=== PATIENT | female | born 1975 | race Caucasian/White ===

== ENCOUNTER 2018-07-25 10:46 | Outpatient (CLI) | payer OTHER ==
--- NOTE | 2018-07-25 11:08 | RAD ---
LEFT ANKLE 3 VIEWS: HISTORY: A 43-year-old female with a history of pain. FINDINGS: Degenerative changes left ankle joint. Calcaneal, plantar, and Achilles enthesophytes. No fracture or dislocation. IMPRESSION: Degenerative changes without fracture or dislocation. POS: [facility]JI
== END 2018-07-25 10:47 | disposition home or self-care (01) ==
LOC: RAD-FRANK 10:46
PROVIDERS: ATTEND Nurse Practitioner Family
DX: M25.572 Pain in left ankle and joints of left foot (principal); M19.072 Primary osteoarthritis, left ankle and foot

== ENCOUNTER 2019-05-19 15:27 | Outpatient (CLI) | payer OTHER ==
--- NOTE | 2019-06-09 11:27 | MMO ---
Bilateral MAMMO Bilat Screen [facility]. CLINICAL HISTORY: Patient is 44 years old and is seen for screening. The patient has no family history of breast cancer. The patient has no personal history of cancer. VIEWS: The views performed were: bilateral craniocaudal; bilateral craniocaudal with tomosynthesis; bilateral mediolateral oblique; and bilateral mediolateral oblique with tomosynthesis. FILMS COMPARED: The present examination has been compared to a prior imaging study performed at [facility] on 09/09/2015. This study has been interpreted with the assistance of computer-aided detection. MAMMOGRAM FINDINGS: There are scattered fibroglandular densities. Benign calcifications are noted bilaterally. There are no suspicious masses, suspicious calcifications, or new areas of architectural distortion. IMPRESSION: THERE IS NO MAMMOGRAPHIC EVIDENCE OF MALIGNANCY. A ROUTINE FOLLOW-UP MAMMOGRAM IN 1 YEAR IS RECOMMENDED. THE RESULTS OF THIS EXAM WERE SENT TO THE PATIENT. ACR BI-RADS Category 2 - Benign finding MAMMOGRAPHY NOTE: 1. A negative mammogram report should not delay a biopsy if a dominant of clinically suspicious mass is present. 2. Approximately 10% to 15% of breast cancers are not detected by mammography. 3. Adenosis and dense breasts may obscure an underlying neoplasm. Reported by: GAETANO CARO MD Electonically Signed: [id number]
== END 2019-05-19 15:28 | disposition home or self-care (01) ==
LOC: BICMAMMO 15:27
PROVIDERS: ATTEND Nurse Practitioner Family
DX: Z12.31 Encounter for screening mammogram for malignant neoplasm of breast (principal)
CPT/HCPCS: 77063; 77067

== ENCOUNTER 2020-04-22 11:54 | Emergency (ER) | payer OTHER, SELFPAY ==
[2020-04-22] MEDS ORDERED: Morphine 4 MG/ML VIAL ONE (12:25)
[2020-04-22] MEDS ORDERED: Ondansetron PF 4 MG/2 ML Vial ONE (12:25)
[2020-04-22 12:39] LABS: #Basophils 0.1 thou/uL (0.0-0.2); #Eosinphils 0.1 thou/uL (0.0-0.7); #Lymphocytes 2.1 thou/uL (1.20-3.40); #Monocytes 0.9 thou/uL (0.11-0.59); #Neutrophils 9.6 thou/uL (1.40-6.50); %Basophils 0.6 % (0.0-1.0); %Eosinophils 0.4 % (0.0-10.0); %Lymphocytes 16.5 % (21.0-51.0); %Monocytes 6.7 % (0.0-10.0); %Neutrophils 75.8 % (42.0-75.0); Hemoglobin 13.8 g/dL (12.0-16.0); Mean Corpuscular HGB CONC 32.6 g/dL (32.0-36.0); Mean Corpuscular Hemoglobin 28.7 pg (27.0-31.0); Mean Corpuscular Volume 88.1 fL (78.0-98.0); Platelet Count 373 thou/uL (130-400); RBC Distribution Width 12.5 % (11.5-14.5); Red Blood Cell (RBC) Count 4.82 mill/uL (4.20-5.40); White Blood Cell (WBC) Count 12.7 thou/uL (4.8-10.8)
--- NOTE | 2020-04-22 12:56 | CT ---
CT Abdomen Pelvis W Con HISTORY: Abdominal pain COMPARISON: 02/24/2017 FINDINGS: The lung bases are unremarkable. The tiny calcified granulomas in the liver. The spleen, pancreas, ad renal glands and kidneys are normal. No calcified gallstones are seen. No free air, free fluid or lymphadenopathy is noted in the abdomen or pelvis. The small bowel loops are not abnormally dilated. A normal-appearing appendix is present. The patient is post hysterectomy. There is a 5 cm septated cystic mass in the left adnexa. There are degenerative changes in the spine. The aorta is of normal caliber. IMPRESSION: 1. No evidence of acute process 2. A 5 cm cystic left adnexal mass, likely ovarian. This would be better characterized with a pelvic ultrasound.
[2020-04-22 13:01] LABS: ALT (SGPT) 9 U/L (8-55); AST (SGOT) 12 U/L (5-34); Alkaline Phosphatase 70 U/L (40-110); Anion Gap 14 mmol/L (10-20); BUN (Urea Nitrogen) 8 mg/dL (7.0-18.7); Bilirubin, Total 0.4 mg/dL (0.2-1.2); Calc. Creatinine Clearance 0 mL/min (70-130); Calcium 8.9 mg/dL (7.8-10.44); Carbon Dioxide 22 mmol/L (22-29); Chloride 106 mmol/L (98-107); Estimated GFR-MDRD 83; Globulin 3.2 g/dL (2.4-3.5); Glucose 94 mg/dL (70-105); Potassium 3.7 mmol/L (3.5-5.1); Protein, Total 7.2 g/dL (6.0-8.3); Sodium 138 mmol/L (136-145)
[2020-04-22 14:32] LABS: Bilirubin Negative (Negative); Blood, Urine Negative (Negative); Clarity Clear (Clear); Glucose, Urine (Dipstick) Normal (Negative); Ketone, Urine Negative (Negative); Leukocyte Negative Leu/uL (Negative); Nitrite Negative (Negative); Protein, Urine (Dipstick) Negative (Neg-Trace); Specific Gravity, Urine 1.018 (1.002-1.036); Urobilinogen Normal mg/dL (Less than 2)
--- NOTE | 2020-04-22 15:00 | ULT ---
EXAM: Pelvic ultrasound HISTORY: Pelvic pain COMPARISON: None TECHNIQUE: Multiple grayscale and color Doppler images were obtained in a transabdominal pelvic ultra sound. Spectral analysis of the Doppler waveforms of the ovaries were performed. FINDINGS: The patient is status post removal of the uterus and right ovary. No free fluid is seen in the pelvis . LEFT OVARY: Normal flow without focal mass. There is a septated cystic lesion in the left ovary measu ring 4.6 cm in greatest dimension. IMPRESSION: Left ovarian septated cystic lesion may represent a cyst or cystic neoplasm.
== END 2020-04-22 15:52 | disposition home or self-care (01) ==
LOC: ERS 11:54
DX: N83.202 Unspecified ovarian cyst, left side (principal); I10 Essential (primary) hypertension; G43.909 Migraine, unspecified, not intractable, without status migrainosus; Z79.899 Other long term (current) drug therapy
CPT/HCPCS: 36415; 74177; 76856; 80053; 81003; 83605; 85025; 87040; 93005; 93976; 94760; 96361; 96374; 96375; J2270; J2405

== ENCOUNTER 2020-06-03 15:20 | Outpatient (CLI) | payer OTHER ==
--- NOTE | 2020-06-03 16:01 | RAD ---
Exam: Right elbow 4 views: HISTORY: Pain, possible injury COMPARISON: None FINDINGS: No evidence for elbow joint effusion. No evidence for fracture, dislocation, or other significant acute osseous abnormality. IMPRESSION: No significant acute process.
== END 2020-06-03 15:21 | disposition home or self-care (01) ==
LOC: BICRAD 15:20
PROVIDERS: ATTEND Nurse Practitioner Family
DX: M25.521 Pain in right elbow (principal)

== ENCOUNTER 2020-08-15 12:09 | Outpatient (CLI) | payer OTHER ==
--- NOTE | 2020-08-15 15:21 | MRI ---
EXAM: MRI Upper Ext Jt Rt WO Con DATE: 08/15/2020 12:45 PM INDICATION: Right elbow lateral epicondylitis COMPARISON: Right elbow radiograph dated June 03, 2020 FINDING: Multiplanar multisequence MR images were obtained of the right elbow without IV contrast. There is a moderate to severe lateral epicondylitis. The ulnar collateral ligament, lateral collatera l ligament, lateral ulnar collateral ligament and common flexor origin are normal appearing. The triceps insertion is normal-appearing. The biceps and brachialis insertions are normal appearing. The visualized ulnar nerve is normal-appearing. Bone marrow signal intensity appears within normal limits. IMPRESSION:Moderate to severe lateral epicondylitis
== END 2020-08-15 12:10 | disposition home or self-care (01) ==
LOC: BICMRI 12:09
PROVIDERS: ATTEND Orthopaedic Surgery
DX: M77.11 Lateral epicondylitis, right elbow (principal)

== ENCOUNTER 2020-12-27 08:46 | Outpatient (CLI) | payer OTHER | END 2020-12-27 08:47 | disposition home or self-care (01) | LOC: BICULT 08:46 | PROVIDERS: ATTEND Nurse Practitioner Family | DX: N83.202 Unspecified ovarian cyst, left side (principal); K80.20 Calculus of gallbladder without cholecystitis without obstruction | CPT/HCPCS: 76856; 93975; 93976 ==

== ENCOUNTER 2021-05-15 11:22 | Outpatient (CLI) | payer OTHER ==
[2021-05-15 12:35] LABS: #Basophils 0.1 10x3/uL (0.0-0.2); #Eosinphils 0.1 10x3/uL (0.0-0.5); #Monocytes 0.8 10x3/uL (0.0-1.1); #Neutrophils 7.4 10x3/uL (1.5-8.4); %Basophils 0.6 % (0.0-2.0); %Eosinophils 0.6 % (0.0-6.0); %Lymphocytes 18.7 % (18.0-47.0); %Monocytes 7.6 % (0.0-10.0); Hemoglobin 13.9 g/dL (12.0-15.5); Mean Corpuscular HGB CONC 32.2 g/dL (32.0-36.0); Mean Corpuscular Hemoglobin 28.5 pg (27.0-33.0); Mean Corpuscular Volume 88.7 fl (81.6-98.3); Mean Platelet Volume 10.5 fl (7.4-10.4); Platelet Count 329 10x3/uL (150-450); RBC Distribution Width 12.3 % (11.5-14.5); Red Blood Cell (RBC) Count 4.87 10x6/uL (3.90-5.03); White Blood Cell (WBC) Count 10.3 10x3/uL (3.5-10.5)
[2021-05-15 23:44] LABS: SARS-CoV-2 PCR by NAA Not Detected (NotDetected)
== END 2021-05-15 11:23 | disposition home or self-care (01) ==
LOC: LABBT 11:22
PROVIDERS: ATTEND Orthopaedic Surgery
DX: Z01.812 Encounter for preprocedural laboratory examination (principal); Z20.822 Contact with and (suspected) exposure to COVID-19
CPT/HCPCS: 85025; U0003; U0005

== ENCOUNTER 2021-05-18 05:50 | Day surgery (SDC) | payer OTHER ==
[2021-05-17 13:23] VITALS: BMI 38.0
[2021-05-18] MEDS ORDERED: ceFAZolin 2 GM/DEX 5% 100 ML BAG ONE (06:36)
[2021-05-18] MEDS ORDERED: Bupivacaine PF 0.5% 30 ML VIAL ONE (06:43)
[2021-05-18] MEDS ORDERED: EPINEPHrine 1 MG/ML AMP ONE (06:43)
[2021-05-18] MEDS ORDERED: Fentanyl 100 MCG/2 ML VIAL ONE ×2 (06:59→07:48)
[2021-05-18] MEDS ORDERED: Midazolam HCl 2 mg/2 ml Vial ONE (06:59)
[2021-05-18] MEDS ORDERED: Ondansetron PF 4 MG/2 ML Vial ONE (07:19)
[2021-05-18] MEDS ORDERED: PROPOFOL 200 MG/20 ML VIAL ONE (07:19)
[2021-05-18] MEDS ORDERED: Dexamethasone 20 MG/5 ML VIAL ONE (07:19)
[2021-05-18] MEDS ORDERED: Lidocaine 1% PF 5 ML VIAL ONE (07:19)
[2021-05-18] MEDS ORDERED: Bupivacaine HCl 0.5%/Epinephrine 1:200,000/PF 30 ml Vial ONE (07:30)
[2021-05-18] MEDS ORDERED: Famotidine/PF 20 mg/2ml Vial ONE (07:46)
== END 2021-05-18 11:26 | disposition home or self-care (01) ==
LOC: SDC 05:50
PROVIDERS: ATTEND Orthopaedic Surgery
PROC: 0LN30ZZ Release Right Upper Arm Tendon, Open Approach (ICD-10-PCS; principal; 2021-05-18)
PROC: 0PBF0ZZ Excision of Right Humeral Shaft, Open Approach (ICD-10-PCS; principal; 2021-05-18)
PROC: 3E0T3BZ Introduction of Anesthetic Agent into Peripheral Nerves and Plexi, Percutaneous Approach (ICD-10-PCS; principal; 2021-05-18)
PROC: 01N40ZZ Release Ulnar Nerve, Open Approach (ICD-10-PCS; principal; 2021-05-18)
DX: G56.21 Lesion of ulnar nerve, right upper limb (principal); M77.11 Lateral epicondylitis, right elbow; M77.01 Medial epicondylitis, right elbow; M25.721 Osteophyte, right elbow; I10 Essential (primary) hypertension; Z79.899 Other long term (current) drug therapy
CPT/HCPCS: 85025; J0171; J1100; J2250; J2405; J2704; J3010; S0020; S0028; U0003; U0005

== ENCOUNTER 2021-12-19 16:09 | Outpatient (CLI) | payer OTHER | END 2021-12-19 16:10 | disposition home or self-care (01) | LOC: RAD-FRANK 16:09 | PROVIDERS: ATTEND Nurse Practitioner Family | DX: M54.2 Cervicalgia (principal); M47.812 Spondylosis without myelopathy or radiculopathy, cervical region | CPT/HCPCS: 72040 ==

== ENCOUNTER 2022-04-04 08:06 | Outpatient (CLI) | payer OTHER | END 2022-04-04 08:07 | disposition home or self-care (01) | LOC: RAD-FRANK 08:06 | PROVIDERS: ATTEND Nurse Practitioner Family | DX: M79.605 Pain in left leg (principal) ==

== ENCOUNTER 2023-06-12 12:36 | Outpatient (CLI) | payer OTHER | END 2023-06-12 12:37 | disposition home or self-care (01) | LOC: ULT 12:36 | PROVIDERS: ATTEND Internal Medicine Gastroenterology | DX: K59.09 Other constipation (principal); K21.9 Gastro-esophageal reflux disease without esophagitis; R10.11 Right upper quadrant pain; K80.20 Calculus of gallbladder without cholecystitis without obstruction | CPT/HCPCS: 76705 ==

== ENCOUNTER 2023-07-05 15:52 | Outpatient (CLI) | payer OTHER ==
[2023-07-05 17:36] LABS: ALT (SGPT) 12 U/L (8-55); AST (SGOT) 13 U/L (5-34); Albumin 3.9 g/dL (3.5-5.0); Alkaline Phosphatase 70 U/L (40-110); Anion Gap 15 mmol/L (10-20); BUN (Urea Nitrogen) 7 mg/dL (7.0-18.7); Bilirubin, Direct 0.1 mg/dL (0.1-0.3); Bilirubin, Total 0.2 mg/dL (0.2-1.2); Calc. Creatinine Clearance 0 mL/min (70-130); Calcium 9.2 mg/dL (7.8-10.44); Carbon Dioxide 24 mmol/L (22-29); Chloride 105 mmol/L (98-107); Estimated GFR 93; Globulin 2.7 g/dL (2.4-3.5); Glucose 91 mg/dL (70-105); Potassium 3.7 mmol/L (3.5-5.1); Protein, Total 6.6 g/dL (6.0-8.3); Sodium 140 mmol/L (136-145)
[2023-07-05 17:41] LABS: #Basophils 0.1 10x3/uL (0.0-0.2); #Eosinphils 0.1 10x3/uL (0.0-0.5); #Monocytes 0.9 10x3/uL (0.0-1.1); #Neutrophils 7.9 10x3/uL (1.5-8.4); %Basophils 0.5 % (0.0-2.0); %Eosinophils 0.5 % (0.0-6.0); %Lymphocytes 18.3 % (18.0-47.0); %Monocytes 7.8 % (0.0-10.0); %Neutrophils 72.4 % (40.0-75.0); Hematocrit 40.8 % (34.9-44.5); Hemoglobin 13.5 g/dL (12.0-15.5); Mean Corpuscular HGB CONC 33.1 g/dL (32.0-36.0); Mean Corpuscular Hemoglobin 29.9 pg (27.0-33.0); Mean Corpuscular Volume 90.5 fl (81.6-98.3); Mean Platelet Volume 10.1 fl (7.4-10.4); Platelet Count 373 10x3/uL (150-450); RBC Distribution Width 13.1 % (11.5-14.5); Red Blood Cell (RBC) Count 4.51 10x6/uL (3.90-5.03)
== END 2023-07-05 15:53 | disposition home or self-care (01) ==
LOC: LABBT 15:52
PROVIDERS: ATTEND Surgery
DX: Z01.812 Encounter for preprocedural laboratory examination (principal); K80.20 Calculus of gallbladder without cholecystitis without obstruction
CPT/HCPCS: 80053; 80076; 85025; 93005; 93010

== ENCOUNTER 2023-12-11 19:20 | Emergency (ER) | payer OTHER ==
[2023-12-11 19:55] LABS: #Basophils 0.08 10x3/uL (0.0-0.2); %Basophils 0.7 % (0.0-1.0); %Eosinophils 0.8 % (0.0-10.0); %Lymphocytes 21.6 % (21.0-51.0); %Monocytes 6.5 % (0.0-10.0); %Neutrophils 69.6 % (42.0-75.0); Hematocrit 42.7 % (36.0-47.0); Hemoglobin 13.9 g/dL (12.0-16.0); Mean Corpuscular HGB CONC 32.6 g/dL (32.0-36.0); Mean Corpuscular Hemoglobin 29.3 pg (27.0-31.0); Mean Corpuscular Volume 89.9 fL (78.0-98.0); Mean Platelet Volume 9.4 fL (7.4-10.4); Platelet Count 427 10x3/uL (130-400); RBC Distribution Width 13.8 % (11.5-14.5); Red Blood Cell (RBC) Count 4.75 mill/uL (4.20-5.40)
[2023-12-11 20:17] LABS: ALT (SGPT) 16 U/L (8-55); AST (SGOT) 16 U/L (5-34); Albumin 3.8 g/dL (3.5-5.0); Alkaline Phosphatase 106 U/L (40-110); Anion Gap 16 mmol/L (10-20); BUN (Urea Nitrogen) 13 mg/dL (7.0-18.7); Bilirubin, Total 0.4 mg/dL (0.2-1.2); Calc. Creatinine Clearance 0 mL/min (70-130); Calcium 9.9 mg/dL (7.8-10.44); Carbon Dioxide 24 mmol/L (22-29); Chloride 99 mmol/L (98-107); Estimated GFR 60; Glucose 97 mg/dL (70-105); Potassium 3.9 mmol/L (3.5-5.1); Protein, Total 7.8 g/dL (6.0-8.3); Sodium 135 mmol/L (136-145)
[2023-12-11 20:26] LABS: Troponin I Less than 0.010 ng/mL (< 0.028)
[2023-12-11 20:40] LABS: Free T4 (Free Thyroxine) 1.31 ng/dL (0.70-1.48); Thyroid Stimulating Hormone 0.2719 uIU/mL (0.35-4.94)
[2023-12-11] MEDS ORDERED: Acetaminophen 500 MG TAB ONE (21:10)
[2023-12-11] MEDS ORDERED: Aspirin Chewable 81 MG TAB ONE (21:10)
[2023-12-11 21:12] LABS: Magnesium 1.7 mg/dL (1.6-2.6)
[2023-12-11] MEDS ORDERED: Magnesium 2 GM/50 ML BAG (IN WATER) ONE (21:52)
[2023-12-11 22:45] LABS: Amphetamine Detected (NotDetected); Barbiturates Screen Detected (NotDetected); Benzodiazepine Screen Not Detected (NotDetected); Cocaine Metabolite Screen Not Detected (NotDetected); Methadone Not Detected (NotDetected); Methamphetamine Not Detected (NotDetected); Opiate Screen Not Detected (NotDetected); Oxycodone Screen Not Detected (NotDetected); Phencyclidine (PCP) Not Detected (NotDetected); THC/Cannabinoid Screen Not Detected (NotDetected); Tricyclic Screen Detected (NotDetected)
== END 2023-12-11 23:25 | disposition home or self-care (01) ==
LOC: ERS 19:20
DX: R07.89 Other chest pain (principal); R06.02 Shortness of breath; I10 Essential (primary) hypertension; Z79.899 Other long term (current) drug therapy
CPT/HCPCS: 36415; 71045; 80053; 80306; 83735; 83880; 84439; 84443; 84481; 84484; 85025; 93005; 96365; J3475